=== PATIENT | male | born 1970 | race African-American/Black ===

== ENCOUNTER 2018-01-31 14:34 | Emergency (ER) | payer OTHER ==
[2018-01-31 16:35] LABS: BILIRUBIN,URINE NEGATIVE (NEG); CLARITY,URINE CLEAR; COLOR,URINE YELLOW; GLUCOSE,URINE NEGATIVE (NEG); NITRITE,URINE POSITIVE (NEG); PH,URINE 7.5; PROTEIN,URINE 30 mg/dL (NEG-TRACE)
[2018-01-31] MEDS ORDERED: GABAPENTIN 400 MG CAPSULE. PO (16:48)
[2018-01-31 16:53] LABS: BACTERIA,URINE MOD /HPF (0-FEW); RBC,URINE OCC /HPF (0-2); SQUAMOUS EPITHELIAL CELL,UR FEW /LPF; WBC,URINE 20-40 /HPF (0-4)
[2018-01-31] MEDS ORDERED: cefTRIAXone IM 1 GM VIAL IM (17:00)
[2018-01-31] MEDS: GABAPENTIN 300 MG CAPSULE. PO (17:07)
== END 2018-01-31 17:20 | disposition home or self-care (01) ==
LOC: ER 14:34
DX: N39.0 Urinary tract infection, site not specified (principal); T83.098A Other mechanical complication of other urinary catheter, initial encounter; F12.10 Cannabis abuse, uncomplicated; F16.10 Hallucinogen abuse, uncomplicated; Z88.8 Allergy status to other drugs, medicaments and biological substances; Z88.6 Allergy status to analgesic agent; Z91.041 Radiographic dye allergy status; Y84.8 Other medical procedures as the cause of abnormal reaction of the patient, or of later complication, without mention of misadventure at the time of the procedure; Y92.89 Other specified places as the place of occurrence of the external cause
CPT/HCPCS: 51702; 81001; 87086; 99284-25

== ENCOUNTER 2018-02-26 17:29 | Emergency (ER) | payer OTHER ==
[2018-02-26] MEDS: SMZ/TMP 800/160MG TABLET. PO (19:45)
== END 2018-02-26 20:15 | disposition home or self-care (01) ==
LOC: ER 17:29
DX: L89.622 Pressure ulcer of left heel, stage 2 (principal); F12.10 Cannabis abuse, uncomplicated; D57.3 Sickle-cell trait; F16.10 Hallucinogen abuse, uncomplicated; G82.20 Paraplegia, unspecified; Z91.041 Radiographic dye allergy status; Z88.8 Allergy status to other drugs, medicaments and biological substances; Z90.49 Acquired absence of other specified parts of digestive tract
CPT/HCPCS: 99283

== ENCOUNTER → 2018-03-07 | Outpatient (CLI) | payer OTHER | END | disposition home or self-care (01) | LOC: PMGWOUND 09:27 | DX: L89.894 Pressure ulcer of other site, stage 4 (principal); F17.210 Nicotine dependence, cigarettes, uncomplicated; F12.10 Cannabis abuse, uncomplicated | CPT/HCPCS: 11042 ==

== ENCOUNTER → 2018-03-14 | Outpatient (CLI) | payer OTHER | END | disposition home or self-care (01) | LOC: PMGWOUND 10:38 | DX: L89.894 Pressure ulcer of other site, stage 4 (principal); G82.21 Paraplegia, complete; F17.210 Nicotine dependence, cigarettes, uncomplicated; F12.10 Cannabis abuse, uncomplicated | CPT/HCPCS: 11042 ==

== ENCOUNTER → 2018-03-21 | Outpatient (CLI) | payer OTHER | END | disposition home or self-care (01) | LOC: PMGWOUND 11:00 | DX: L89.894 Pressure ulcer of other site, stage 4 (principal); G82.21 Paraplegia, complete; F17.210 Nicotine dependence, cigarettes, uncomplicated; F12.10 Cannabis abuse, uncomplicated | CPT/HCPCS: 97597 ==

== ENCOUNTER → 2018-03-28 | Outpatient (CLI) | payer OTHER | END | disposition home or self-care (01) | LOC: PMGWOUND 09:57 | DX: L89.894 Pressure ulcer of other site, stage 4 (principal); G82.21 Paraplegia, complete; F17.210 Nicotine dependence, cigarettes, uncomplicated; F12.90 Cannabis use, unspecified, uncomplicated; Z90.49 Acquired absence of other specified parts of digestive tract | CPT/HCPCS: 97597 ==

== ENCOUNTER → 2018-04-04 | Outpatient (CLI) | payer OTHER | END | disposition home or self-care (01) | LOC: PMGWOUND 10:26 | DX: L89.894 Pressure ulcer of other site, stage 4 (principal); L84 Corns and callosities; G82.21 Paraplegia, complete; F17.210 Nicotine dependence, cigarettes, uncomplicated; F12.90 Cannabis use, unspecified, uncomplicated; F16.10 Hallucinogen abuse, uncomplicated; Z90.49 Acquired absence of other specified parts of digestive tract | CPT/HCPCS: 11042; 97597 ==

== ENCOUNTER → 2018-04-11 | Outpatient (CLI) | payer OTHER | END | disposition home or self-care (01) | LOC: PMGWOUND 10:33 | DX: L89.894 Pressure ulcer of other site, stage 4 (principal); L84 Corns and callosities; G82.21 Paraplegia, complete; F12.10 Cannabis abuse, uncomplicated; F17.210 Nicotine dependence, cigarettes, uncomplicated; F16.10 Hallucinogen abuse, uncomplicated; Z90.49 Acquired absence of other specified parts of digestive tract | CPT/HCPCS: 99214 ==

== ENCOUNTER → 2018-04-25 | Outpatient (CLI) | payer OTHER | END | disposition home or self-care (01) | LOC: PMGWOUND 10:36 | DX: L89.894 Pressure ulcer of other site, stage 4 (principal); L89.159 Pressure ulcer of sacral region, unspecified stage; S90.412A Abrasion, left great toe, initial encounter; L84 Corns and callosities; G82.21 Paraplegia, complete; F12.10 Cannabis abuse, uncomplicated; F17.210 Nicotine dependence, cigarettes, uncomplicated; F16.10 Hallucinogen abuse, uncomplicated; Z90.49 Acquired absence of other specified parts of digestive tract; X58.XXXA Exposure to other specified factors, initial encounter; Y93.9 Activity, unspecified; Y92.9 Unspecified place or not applicable; Y99.8 Other external cause status | CPT/HCPCS: 99214 ==

== ENCOUNTER → 2018-05-02 | Outpatient (CLI) | payer OTHER | END | disposition home or self-care (01) | LOC: PMGWOUND 10:48 | DX: L89.159 Pressure ulcer of sacral region, unspecified stage (principal); S91.302A Unspecified open wound, left foot, initial encounter; L84 Corns and callosities; G82.21 Paraplegia, complete; F12.10 Cannabis abuse, uncomplicated; F17.210 Nicotine dependence, cigarettes, uncomplicated; F16.10 Hallucinogen abuse, uncomplicated; Z90.49 Acquired absence of other specified parts of digestive tract; X58.XXXA Exposure to other specified factors, initial encounter; Y93.9 Activity, unspecified; Y99.8 Other external cause status; Y92.9 Unspecified place or not applicable | CPT/HCPCS: 99214 ==

== ENCOUNTER → 2018-05-09 | Outpatient (CLI) | payer OTHER, MEDICAID | END | disposition home or self-care (01) | LOC: PMGWOUND 11:30 | DX: L89.894 Pressure ulcer of other site, stage 4 (principal); L89.150 Pressure ulcer of sacral region, unstageable; G82.21 Paraplegia, complete; T24.021A Burn of unspecified degree of right knee, initial encounter; T31.0 Burns involving less than 10% of body surface; F17.210 Nicotine dependence, cigarettes, uncomplicated; F12.10 Cannabis abuse, uncomplicated; Z90.49 Acquired absence of other specified parts of digestive tract; X08.8XXA Exposure to other specified smoke, fire and flames, initial encounter; Y93.89 Activity, other specified; Y92.89 Other specified places as the place of occurrence of the external cause; Y99.8 Other external cause status | CPT/HCPCS: 11042; 97597 ==

== ENCOUNTER → 2018-05-23 | Outpatient (CLI) | payer OTHER, MEDICAID | END | disposition home or self-care (01) | LOC: PMGWOUND 12:00 | DX: L89.894 Pressure ulcer of other site, stage 4 (principal); L89.150 Pressure ulcer of sacral region, unstageable; T24.021D Burn of unspecified degree of right knee, subsequent encounter; T31.0 Burns involving less than 10% of body surface; G82.21 Paraplegia, complete; F12.10 Cannabis abuse, uncomplicated; F17.210 Nicotine dependence, cigarettes, uncomplicated; Z90.49 Acquired absence of other specified parts of digestive tract; X08.8XXD Exposure to other specified smoke, fire and flames, subsequent encounter | CPT/HCPCS: 97597; 97598 ==

== ENCOUNTER → 2018-05-30 | Outpatient (CLI) | payer OTHER, MEDICAID | END | disposition home or self-care (01) | LOC: PMGWOUND 11:30 | DX: L89.894 Pressure ulcer of other site, stage 4 (principal); T24.221D Burn of second degree of right knee, subsequent encounter; G82.20 Paraplegia, unspecified; G82.21 Paraplegia, complete; L89.150 Pressure ulcer of sacral region, unstageable; F12.10 Cannabis abuse, uncomplicated; F17.210 Nicotine dependence, cigarettes, uncomplicated; Z90.49 Acquired absence of other specified parts of digestive tract; T31.0 Burns involving less than 10% of body surface; X08.8XXD Exposure to other specified smoke, fire and flames, subsequent encounter | CPT/HCPCS: 97597; 97598 ==

== ENCOUNTER → 2018-06-06 | Outpatient (CLI) | payer OTHER, MEDICAID | END | disposition home or self-care (01) | LOC: PMGWOUND 11:18 | DX: L89.894 Pressure ulcer of other site, stage 4 (principal); L89.150 Pressure ulcer of sacral region, unstageable; T24.221D Burn of second degree of right knee, subsequent encounter; G82.21 Paraplegia, complete; F12.10 Cannabis abuse, uncomplicated; F17.210 Nicotine dependence, cigarettes, uncomplicated; Z90.49 Acquired absence of other specified parts of digestive tract; T31.0 Burns involving less than 10% of body surface; X08.8XXD Exposure to other specified smoke, fire and flames, subsequent encounter | CPT/HCPCS: 11042 ==

== ENCOUNTER → 2018-06-13 | Outpatient (CLI) | payer MEDICAID, OTHER | END | disposition home or self-care (01) | LOC: PMGWOUND 12:00 | DX: L89.894 Pressure ulcer of other site, stage 4 (principal); L89.150 Pressure ulcer of sacral region, unstageable; T24.221D Burn of second degree of right knee, subsequent encounter; G82.21 Paraplegia, complete; F12.10 Cannabis abuse, uncomplicated; F17.210 Nicotine dependence, cigarettes, uncomplicated; Z90.49 Acquired absence of other specified parts of digestive tract; T31.0 Burns involving less than 10% of body surface; X08.8XXD Exposure to other specified smoke, fire and flames, subsequent encounter | CPT/HCPCS: 11042; 73630; 97597 ==

== ENCOUNTER → 2018-06-20 | Outpatient (CLI) | payer MEDICAID, OTHER ==
[2018-02-26 19:05] VITALS: BP 133/69
[~2018-06-20] MED LIST: AMIT25TA; LEVO750T31 PO; SULF1TAB23 PO
== END | disposition home or self-care (01) ==
LOC: PMGWOUND 11:00
PROVIDERS: ATTEND Preventive Medicine Undersea and Hyperbaric Medicine
DX: L89.894 Pressure ulcer of other site, stage 4 (principal); L89.150 Pressure ulcer of sacral region, unstageable; G82.21 Paraplegia, complete; F12.10 Cannabis abuse, uncomplicated; F17.210 Nicotine dependence, cigarettes, uncomplicated; Z90.49 Acquired absence of other specified parts of digestive tract
CPT/HCPCS: 97597

== ENCOUNTER → 2018-06-27 | Outpatient (CLI) | payer MEDICAID, OTHER ==
[2018-02-26 19:05] VITALS: BP 133/69
== END | disposition home or self-care (01) ==
LOC: PMGWOUND 10:07
PROVIDERS: ATTEND Preventive Medicine Undersea and Hyperbaric Medicine
DX: L89.894 Pressure ulcer of other site, stage 4 (principal); L89.150 Pressure ulcer of sacral region, unstageable; G82.21 Paraplegia, complete; L84 Corns and callosities; F17.210 Nicotine dependence, cigarettes, uncomplicated; F12.10 Cannabis abuse, uncomplicated; Z90.49 Acquired absence of other specified parts of digestive tract
CPT/HCPCS: 99214; G0463

== ENCOUNTER 2018-07-04 14:18 | Emergency (ER) | payer MEDICAID, OTHER ==
[~2018-07-04] VITALS: Ht 177.8 cm; Wt 79.4 kg
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
[2018-07-04 16:43] VITALS: BP 115/70
[2018-07-04] MEDS ORDERED: oxyCODONE IR 5 MG TABLET PO ONE (17:00)
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
== END 2018-07-04 17:53 | disposition home or self-care (01) ==
LOC: ER 14:18
DX: S16.1XXA Strain of muscle, fascia and tendon at neck level, initial encounter (principal); M54.5 Low back pain; M54.6 Pain in thoracic spine; Z88.6 Allergy status to analgesic agent; Z88.8 Allergy status to other drugs, medicaments and biological substances; Z91.041 Radiographic dye allergy status; V53.4XXA Person boarding or alighting a pick-up truck or van injured in collision with car, pick-up truck or van, initial encounter; Y93.89 Activity, other specified; Y92.481 Parking lot as the place of occurrence of the external cause; Y99.8 Other external cause status
CPT/HCPCS: 72072; 72100; 72125; 99284-25

== ENCOUNTER → 2018-07-04 | Outpatient (CLI) | payer MEDICAID, OTHER ==
[2018-02-26 19:05] VITALS: BP 133/69
== END | disposition home or self-care (01) ==
LOC: PMGWOUND 10:55
PROVIDERS: ATTEND Preventive Medicine Undersea and Hyperbaric Medicine
DX: E11.621 Type 2 diabetes mellitus with foot ulcer (principal); E11.622 Type 2 diabetes mellitus with other skin ulcer; L97.421 Non-pressure chronic ulcer of left heel and midfoot limited to breakdown of skin; L89.153 Pressure ulcer of sacral region, stage 3; L89.624 Pressure ulcer of left heel, stage 4; G82.21 Paraplegia, complete; L84 Corns and callosities; F14.10 Cocaine abuse, uncomplicated; F17.210 Nicotine dependence, cigarettes, uncomplicated; F12.10 Cannabis abuse, uncomplicated; E11.69 Type 2 diabetes mellitus with other specified complication; M86.68 Other chronic osteomyelitis, other site; Z88.8 Allergy status to other drugs, medicaments and biological substances; Z90.49 Acquired absence of other specified parts of digestive tract; Z88.6 Allergy status to analgesic agent
CPT/HCPCS: 11042

== ENCOUNTER → 2018-07-11 | Outpatient (CLI) | payer OTHER, MEDICAID ==
[2018-07-04 16:43] VITALS: BP 115/70
[~2018-07-11] MED LIST changes: +CIPR500T94 PO
== END | disposition home or self-care (01) ==
LOC: PMGWOUND 11:19
PROVIDERS: ATTEND Preventive Medicine Undersea and Hyperbaric Medicine
DX: E11.621 Type 2 diabetes mellitus with foot ulcer (principal); L89.894 Pressure ulcer of other site, stage 4; L97.521 Non-pressure chronic ulcer of other part of left foot limited to breakdown of skin; L89.153 Pressure ulcer of sacral region, stage 3; L98.491 Non-pressure chronic ulcer of skin of other sites limited to breakdown of skin; L84 Corns and callosities; F17.210 Nicotine dependence, cigarettes, uncomplicated; F12.10 Cannabis abuse, uncomplicated; G82.21 Paraplegia, complete; M86.68 Other chronic osteomyelitis, other site; Z90.49 Acquired absence of other specified parts of digestive tract; Z88.6 Allergy status to analgesic agent; Z88.8 Allergy status to other drugs, medicaments and biological substances; Z91.041 Radiographic dye allergy status
CPT/HCPCS: 99214; G0463

== ENCOUNTER → 2018-08-01 | Outpatient (CLI) | payer MEDICAID, OTHER ==
[2018-07-19 12:00] VITALS: BP 92/63
== END | disposition home or self-care (01) ==
LOC: PMGWOUND 10:49
PROVIDERS: ATTEND Preventive Medicine Undersea and Hyperbaric Medicine
DX: E11.621 Type 2 diabetes mellitus with foot ulcer (principal); L97.521 Non-pressure chronic ulcer of other part of left foot limited to breakdown of skin; L89.894 Pressure ulcer of other site, stage 4; G82.21 Paraplegia, complete; E11.69 Type 2 diabetes mellitus with other specified complication; M86.68 Other chronic osteomyelitis, other site; L84 Corns and callosities; F17.210 Nicotine dependence, cigarettes, uncomplicated; Z90.49 Acquired absence of other specified parts of digestive tract
CPT/HCPCS: 99213

== ENCOUNTER → 2018-08-08 | Outpatient (CLI) | payer OTHER ==
[2018-07-19 12:00] VITALS: BP 92/63
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
== END | disposition home or self-care (01) ==
LOC: CT 15:21
PROVIDERS: ATTEND Preventive Medicine Undersea and Hyperbaric Medicine
DX: L97.529 Non-pressure chronic ulcer of other part of left foot with unspecified severity (principal)
CPT/HCPCS: 73700

== ENCOUNTER → 2018-08-08 | Outpatient (CLI) | payer OTHER, MEDICAID ==
[2018-07-19 12:00] VITALS: BP 92/63
== END | disposition home or self-care (01) ==
LOC: PMGWOUND 11:26
PROVIDERS: ATTEND Preventive Medicine Undersea and Hyperbaric Medicine
DX: E11.621 Type 2 diabetes mellitus with foot ulcer (principal); L97.528 Non-pressure chronic ulcer of other part of left foot with other specified severity; E11.69 Type 2 diabetes mellitus with other specified complication; M86.68 Other chronic osteomyelitis, other site; L84 Corns and callosities; G82.21 Paraplegia, complete; F12.10 Cannabis abuse, uncomplicated; F17.210 Nicotine dependence, cigarettes, uncomplicated; Z90.49 Acquired absence of other specified parts of digestive tract
CPT/HCPCS: 99213